=== PATIENT | male | born 1995 | race Asian ===

== ENCOUNTER 2023-02-22 18:21 | Emergency (ER) | payer OTHER ==
[2023-02-22] MEDS ORDERED: MORPHINE 2 MG/ML CARPUJECT IVP STA (18:40)
[2023-02-22] MEDS ORDERED: KETOROLAC 30 MG/ML VIAL IVP STA (18:40)
[2023-02-22] MEDS ORDERED: methocarbamoL 500 MG TABLET PO STA (18:41)
--- NOTE | 2023-02-22 18:44 | ED Physician Documentation ---
PD HPI BACK PAIN - Stated complaint Stated Complaint: BACK PAIN S/P LIFTING - Chief complaint Chief Complaint: Back Pain - History of Present Illness Location: Lower, Right, Left Quality: Pain, Spasm, Similar to prior episodes Associated symptoms: No: Fever, Weakness, Numbness, Incontinent of urine, Unable to urinate, Hematuria, Incontinent of stool Improves with: Rest Worsened by: Movement Contributing factors: No: Trauma, Anticoagulated, Cancer, IVDA - Additional information Additional information: Patient is a 27-year-old male who presents to the emergency department stating that he was lifting heavy objects at work today and felt a sharp spasm in his back and a pop. He states he has had similar symptoms before. No fever. No chills. No trauma. No paresthesias. Review of Systems Constitutional: denies: Fever, Chills GI: denies: Nausea, Vomiting, Diarrhea Skin: denies: Rash Musculoskeletal: denies: Neck pain Neurologic: denies: Focal weakness, Numbness, Headache PD PAST MEDICAL HISTORY - Past Medical History Past Medical History: No - Past Surgical History Past Surgical History: No - Present Medications Home Medications: Ambulatory Orders Medication Instructions Recorded Confirmed No Known Home Medications 02/22/23 02/22/23 - Allergies Allergies/Adverse Reactions: Allergies Allergy/AdvReac Type Severity Reaction Status Date / Time No Known Drug Allergies Allergy Verified 02/22/23 18:32 - Living Situation Living Situation: reports: With family Living Arrangement: reports: At home - Social History Does the pt have substance abuse?: No - Family History Family history: reports: Non contributory PD ED PE NORMAL - Vitals Vital signs reviewed: Yes - General General: Alert and oriented X 3, No acute distress - HEENT HEENT: PERRL, Moist mucous membranes - Neck Neck: Supple, no meningeal sign - Cardiac Cardiac: RRR, Strong equal pulses - Respiratory Respiratory: No respiratory distress, Clear bilaterally - Abdomen Abdomen: Soft, Non tender, Non distended - Back Back: No spinal TTP (No midline tenderness palpation or percussion. No step-off or deformity. Paraspinal spasm bilateral lower lumbar.) - Derm Derm: Warm and dry - Extremities Extremities: No deformity, No edema, No calf tenderness / cord - Neuro Neuro: Alert and oriented X 3, No motor deficit, No sensory deficit, Other (Normal bilateral lower extremity patellar and ankle jerk reflexes. Normal great toe extension bilaterally. no saddle anesthesia) - Psych Psych: Normal mood, Normal affect Results - Vitals Vitals: Vital Signs - 24 hr 02/22/23 02/22/23 02/22/23 18:28 19:17 20:06 Temperature 36.9 C Heart Rate 89 84 89 Respiratory 18 16 18 Rate Blood Pressure 144/79 H O2 Saturation 100 99 98 02/22/23 21:35 Temperature Heart Rate 85 Respiratory 16 Rate Blood Pressure 123/67 O2 Saturation 98 Oxygen O2 Source Room air PD Medical Decision Making - ED course Complexity details: considered differential (No cauda equina, no spinal epidural abscess, no fracture, no aortic dissection or evidence of aneursym rupture), d/w patient ED course: Patient was given IV Toradol, IV Dilaudid, Robaxin and Valium. He is still having significant pain. Therefore a CT of the lumbar spine was ordered. This will be followed up by Dr. Turner, patient was signed out to her for further evaluation and care. Please see her note for the remainder of the emergency department stay. No evidence of cauda equina, epidural abscess. No focal neurological deficits. This document was made in part using voice recognition software. While efforts are made to proofread this document, sound alike and grammatical errors may occur. Departure - Departure Clinical Impression: Back pain Qualifiers: Back pain location: low back pain Chronicity: acute Back pain laterality: bilateral Sciatica presence: without sciatica Qualified Code(s): M54.50 - Low back pain, unspecified Condition: Stable
[2023-02-22] MEDS: HYDROmorphone 1 MG/ML CARPUJECT IVP STA ×2 (20:19→20:31)
[2023-02-22] MEDS ORDERED: diazePAM INJ 5 MG/ML SYRINGE IVP STA (21:17)
[2023-02-23 00:03] VITALS: O2SAT 100
--- NOTE | 2023-02-23 01:30 | CT Report ---
PROCEDURE: LUMBAR SPINE WO INDICATIONS: back pain TECHNIQUE: Noncontrast 3 mm thick sections acquired from the T12 level to the sacrum. Sagittal and coronal refo rmats were constructed. For radiation dose reduction, the following was used: automated exposure co ntrol, adjustment of mA and/or kV according to patient size. COMPARISON: None. FINDINGS: Bones: There is unremarkable bony alignment. No acute vertebral body compression fractures. No jay jay picious lytic or blastic bony lesions. No significant degenerative changes identified by CT. Soft tissues: No retroperitoneal masses or hematomas. Visualized aorta is normal in caliber. IMPRESSION: No lumbar spine fracture identified. Reviewed by: Nik Dooley MD on 02/23/2023 1:29 AM PDT Approved by: Nik Dooley MD on 02/23/2023 1:29 AM PDT Station ID: [id number]
--- NOTE | 2023-02-23 01:36 | ED Physician Documentation ---
ED Addendum - Addendum Addendum: 02/23/23 01:35 CT L-spine was unremarkable. Patient advised to follow-up with his PCM. Return precautions given. Impression 1 lower back pain Condition stable Disposition Home
[2023-02-23 01:50] VITALS: BP 121/70
== END 2023-02-23 01:43 | disposition home or self-care (01) ==
LOC: ED 18:21
DX: M54.50 Low back pain, unspecified (principal)
CPT/HCPCS: 72131; 96374; 96375; 99283; 99284; A9270; J1170